=== PATIENT | female | born 1980 | race Caucasian/White ===

== ENCOUNTER 2023-02-09 10:59 | Outpatient (CLI) | payer BC, SELFPAY | END 2023-02-09 11:00 | disposition home or self-care (01) | PROVIDERS: PCP Family Medicine; Visit Provider Family Medicine | DX: R53.83 Other fatigue (principal); E66.01 Morbid (severe) obesity due to excess calories; D64.9 Anemia, unspecified; Z90.3 Acquired absence of stomach [part of]; Z98.84 Bariatric surgery status | CPT/HCPCS: 80053; 82306; 82607; 82728; 82746; 84425; 84443 ==

== ENCOUNTER 2025-05-01 11:20 | Outpatient (CLI) | payer BC, SELFPAY | END 2025-05-01 11:21 | disposition home or self-care (01) | PROVIDERS: PCP Family Medicine; Visit Provider Family Medicine | DX: Z11.1 Encounter for screening for respiratory tuberculosis (principal) | CPT/HCPCS: 86480 ==

== ENCOUNTER 2025-08-11 09:04 | Outpatient (CLI) | payer BC, SELFPAY ==
[2025-08-13 05:17] LABS: HPV Source Cervix
[2025-08-16 10:49] LABS: Pap Test Digital Imaging Done
== END 2025-08-11 09:05 | disposition home or self-care (01) ==
PROVIDERS: PCP Family Medicine; Visit Provider Obstetrics & Gynecology
DX: Z12.4 Encounter for screening for malignant neoplasm of cervix (principal); R53.83 Other fatigue; Z98.84 Bariatric surgery status; Z00.00 Encounter for general adult medical examination without abnormal findings
CPT/HCPCS: 87624; 87625; 88141; 88142; 88175

== ENCOUNTER 2025-10-05 10:40 | Outpatient (CLI) | payer BC, SELFPAY | END 2025-10-05 10:41 | disposition home or self-care (01) | LOC: NFLDREF 13:04 | PROVIDERS: PCP Family Medicine; Referring Provider Family Medicine; Visit Provider Obstetrics & Gynecology | DX: R53.83 Other fatigue (principal); Z98.84 Bariatric surgery status; Z00.00 Encounter for general adult medical examination without abnormal findings; E55.9 Vitamin D deficiency, unspecified | CPT/HCPCS: 80053; 80061; 82306; 82652; 84443 ==